=== PATIENT | female | born 1960 | race Caucasian/White ===

== ENCOUNTER → 2016-10-12 | Outpatient (CLI) | payer BC ==
[~2016-10-12] MED LIST: [UNRECOGNIZED DRUG - OTHER] PO
--- NOTE | 2016-10-12 16:25 | MAMMOGRAPHY REPORT ---
BILATERAL DIGITAL SCREENING MAMMOGRAM TOMOSYNTHESIS WITH CAD: 10/12/2016 TECHNIQUE: Breast tomosynthesis in addition to standard 2D mammography was performed. Current study was also evaluated with a Computer Aided Detection (CAD) system. COMPARISON: Comparison is made to exams dated: 10/08/2015 mammogram, 06/29/2013 mammogram, 11/05/2011 m ammogram, 10/28/2010 mammogram, 10/23/2009 mammogram - [facility], and 10/25/2008. BREAST COMPOSITION: The tissue of both breasts is heterogeneously dense, which may obscure small ma sses. FINDINGS: There is a newly visualized round partially circumscribed and partially obscured 6 mm mass seen within the right medial breast at approximately 3:00, for which ultrasound and possible additi onal spot compression views are recommended for further evaluation. This may represent a cyst. The remainder of both breasts are stable compared to prior exams, without suspicious masses, calcifi cations, or areas of architectural distortion noted. IMPRESSION: ACR BI-RADS CATEGORY 0: INCOMPLETE EVALUATION: NEED ADDITIONAL IMAGING EVALUATION Right medial breast mass, for which additional imaging evaluation is recommended. The patient will be called to schedule an appointment. Approximately 10% of breast cancers are not detected with mammography. A negative mammographic repor t should not delay biopsy if a clinically suggestive mass is present. Louisa Whittington M.D. ah/:10/12/2016 16:18:02 Curriculum Writer: Leisa SANTOS)(Fahad), [facility] letter sent: Addl Imaging 0 BI-RADS Code: ACR BI-RADS Category 0: Incomplete Evaluation: Need Additional Imaging Evaluation
== END | disposition home or self-care (01) ==
LOC: C.MAMM 15:09
PROVIDERS: ATTEND Obstetrics & Gynecology
DX: Z12.31 Encounter for screening mammogram for malignant neoplasm of breast (principal); N63 Unspecified lump in breast

== ENCOUNTER → 2016-10-26 | Outpatient (CLI) | payer BC ==
--- NOTE | 2016-10-26 14:37 | MAMMOGRAPHY REPORT ---
ULTRASOUND OF RIGHT BREAST: 10/26/2016 CLINICAL HISTORY: 55-year-old woman called back from screening mammography for a newly visualized 6 mm mass in the 3:00 right breast. COMPARISON: Comparison is made to exams dated: 10/12/2016 mammogram, 10/08/2015 mammogram, 06/29/2013 mammogram, 11/05/2011 mammogram, 10/28/2010 mammogram, and 10/23/2009 mammogram - [facility] [address] [facility]. FINDINGS: Real-time high-resolution sonographic evaluation was performed in the 2:00 to 4:00 axes of the right breast to evaluate for the 6 mm mass seen mammographically. In the 4:[address], there are 2 abutting masses. The superficial mass is anechoic and demonstrates posterior acoust ic enhancement, with circumscribed borders. The smaller deeper mass is hypoechoic but also demonstr ates posterior acoustic enhancement. These most likely represent 2 adjacent cysts. In conglomerate the measurements are 5.7 x 6.2 x 5.2 mm. The shape and location correlate well with the mammograph ic mass. Definitive characterization with cyst aspiration is recommended to ensure cystic nature of both of the adjacent masses. IMPRESSION: ACR BI-RADS CATEGORY 4A: LOW SUSPICION FOR MALIGNANCY - FOLLOW-UP RECOMMENDED There are 2 adjacent probably cystic masses measuring 6 mm in the 4:00 periareolar right breast, tho ught to correlate with the mammographic mass. Ultrasound guided cyst aspiration of both of the abut ting cysts with post-aspiration mammography is recommended to ensure complete resolution. These results and recommendations were discussed with the patient at the time of the exam. She tent atively scheduled the ultrasound guided cyst aspiration prior to leaving our department. Madhavi Hurt M.D. ay/:10/26/2016 10:07:13 Route Specialist: Liya SANTOS)(Fahad), [facility] letter sent: Abnormal 4/5 BI-RADS Code: ACR BI-RADS Category 4A: Low Suspicion For Malignancy
== END | disposition home or self-care (01) ==
LOC: C.MAMM 09:39
PROVIDERS: ATTEND Obstetrics & Gynecology
DX: N63 Unspecified lump in breast (principal)

== ENCOUNTER → 2016-11-16 | Outpatient (CLI) | payer BC ==
--- NOTE | 2016-11-16 13:54 | MAMMOGRAPHY REPORT ---
ASPIRATION RIGHT BREAST: 11/16/2016 CLINICAL HISTORY: 56 year-old woman called back from screening mammography for a newly visualized ma ss in the 4:00 right breast, thought to correlate with a cystic mass versus 2 abutting cysts in the 4:00 axis on ultrasound. She presents for ultrasound-guided cyst aspiration to ensure mammographic sonographic correlation. COMPARISON: Comparison is made to exams dated: 11/16/2016 mammogram, 10/26/2016 ultrasound, 10/08/2015 mammogram, 06/29/2013 mammogram, 11/05/2011 mammogram, and 10/28/2010 mammogram - [facility]. PATIENT CONSENT: After explaining the risks, benefits and alternatives of the procedure to the patie nt, informed consent was obtained verbally and in writing. Specific risks include: bleeding, infecti on and puncture of adjacent structure. A time out was preformed in the right breast was agreed as th e site for cyst aspiration. PROCEDURE DESCRIPTION: The predominantly anechoic cystic appearing mass in the 4:00 right breast was again identified. A smaller oval portion of this mass previously appeared isoechoic as opposed to completely anechoic. On the current targeted ultrasound performed prior to the procedure, both of t hese areas appear nearly anechoic suggesting they both represent simple cysts. This is the intended target for cyst aspiration. The skin of the right breast was cleansed with Betadine. 1% buffered lidocaine without epinephrine was administered as local anesthesia. A 22-gauge needle was advanced to the site of the suspected c yst. Using ultrasound guidance in obtaining images, the needle was advanced into the mass and aspir ation was performed. The more superficial anechoic portion resolved completely. Then the smaller o latonya nearly anechoic area was identified and the needle was placed within. This also resolved comple tely confirming both represented simple cysts. Approximately 1 mL of straw-colored fluid was obtain ed and discarded. Postprocedure right CC and MLO 2-D digital and tomosynthesis images were obtained and compared to th e 10/12/2016 mammograms. There has been complete mammographic resolution of the mass in the 4:00 ax is, confirming mammographicsonographic correlation. However, newly visualized in the posterior med ial right breast on the CC tomosynthesis images is an oval circumscribed 3.6 mm mass. Then repeat targeted ultrasound was performed more medially in the right breast all the patient was still in our department. An oval parallel circumscribed anechoic simple cyst with posterior acousti c enhancement was identified in the 2:00 right breast, 3 cm from the nipple, thought to correlate we ll with the newly visualized mass and this is also benign in appearance. No further workup is neede d at this time. IMPRESSION: ASPIRATION 1. Status post aspiration to resolution of 2 abutting anechoic cysts in the right 4:00 breast, whic h correlates with the newly visualized mammographic mass, confirming mammographicsonographic correl ation. The fluid had the appearance of normal cyst contents and was therefore discarded. 2. Incidentally identified on the postprocedure mammograms is another circumscribed 3.6 mm mass mor e medially and posteriorly in the right breast for which additional targeted ultrasound was performe d. Another simple cyst was identified in the 2:00 right breast, thought to correlate with this mass . This is considered benign and no further workup is needed at this time. 3. Recommend follow-up at time of next annual screening mammogram. Madhavi Hurt M.D. ay/:11/16/2016 12:21:03 Attending Technologist: Dr. Madhavi Hurt, [facility] Delivery Nurse: Anna GLOVER(Irwin)(M), [facility]
--- NOTE | 2016-11-16 13:56 | MAMMOGRAPHY REPORT ---
UNILATERAL RIGHT DIGITAL DIAGNOSTIC MAMMOGRAM TOMOSYNTHESIS: 11/16/2016 CLINICAL HISTORY: Status post ultrasound-guided cyst aspiration of of a cystic appearing mass versus 2 abutting masses in the 4:00 right breast, thought to correlate with a newly visualized mammograph ic mass. Please refer to the report from right breast ultrasound-guided cyst aspiration performed at the same time for full detail. IMPRESSION: Please refer to the report from right breast ultrasound-guided cyst aspiration performed at the same time for full detail. Approximately 10% of breast cancers are not detected with mammography. A negative mammographic repor t should not delay biopsy if a clinically suggestive mass is present. Madhavi Hurt M.D. ay/:11/16/2016 12:15:44 Marker Machine Attendant: Anna SANTOS)(Fahad), [facility] BI-RADS Code: n/a
== END ==
LOC: C.MAMM 11:12
PROVIDERS: ATTEND Obstetrics & Gynecology
DX: N63 Unspecified lump in breast (principal); N60.01 Solitary cyst of right breast

== ENCOUNTER → 2017-06-22 | Outpatient (CLI) | payer BC | END | disposition home or self-care (01) | LOC: C.LABSPEC 15:53 | PROVIDERS: ATTEND Physician Assistant | DX: N76.0 Acute vaginitis (principal) ==

== ENCOUNTER → 2017-08-20 | Outpatient (CLI) | payer BC | END | disposition home or self-care (01) | LOC: C.PAPS 07:43 | PROVIDERS: ATTEND Obstetrics & Gynecology | DX: Z01.419 Encounter for gynecological examination (general) (routine) without abnormal findings (principal); Z78.0 Asymptomatic menopausal state ==

== ENCOUNTER → 2017-10-18 | Outpatient (CLI) | payer BC ==
--- NOTE | 2017-10-19 15:24 | MAMMOGRAPHY REPORT ---
BILATERAL DIGITAL SCREENING MAMMOGRAM TOMOSYNTHESIS WITH CAD: 10/18/2017 CLINICAL HISTORY: Routine screening examination. TECHNIQUE: Breast tomosynthesis in addition to standard 2D mammography was performed. Current study was also evaluated with a Computer Aided Detection (CAD) system. COMPARISON: Comparison is made to exams dated: 11/16/2016 aspiration, 11/16/2016 mammogram, 10/12/2016 mammogram, 10/08/2015 mammogram, 06/29/2013 mammogram, and 11/05/2011 mammogram - [facility] enter. BREAST COMPOSITION: The tissue of both breasts is heterogeneously dense, which may obscure small mas ses. FINDINGS: No obvious masses, asymmetries, architectural distortion or suspicious calcifications are seen bilaterally. The glandular pattern is similar to prior exams. Nodularity is no longer seen in the right breast in the area of prior aspiration. IMPRESSION: ACR BI-RADS CATEGORY 1: NEGATIVE There is no mammographic evidence of malignancy. A 1 year screening mammogram is recommended. The pa tient will receive written notification of the results. Approximately 10% of breast cancers are not detected with mammography. A negative mammographic report should not delay biopsy if a clinically suggestive mass is present. Madhavi Hurt M.D. ay/:10/18/2017 16:16:23 Graphic Technician: Camila SANTOS)(Fahad), [facility] letter sent: Normal 1/2 BI-RADS Code: ACR BI-RADS Category 1: Negative
== END | disposition home or self-care (01) ==
LOC: C.MAMM 14:08
PROVIDERS: ATTEND Family Medicine
DX: Z12.31 Encounter for screening mammogram for malignant neoplasm of breast (principal)